=== PATIENT | female | born 1960 | race Caucasian/White ===

== ENCOUNTER 2018-10-03 13:42 | Outpatient (CLI) | payer BC ==
--- NOTE | 2018-10-03 14:57 | RAD ---
TWO VIEW CHEST: History: Pre-operative evaluation. FINDINGS: Lungs appear clear. Heart and mediastinum unremarkable. Osseous structures are unremarkable. IMPRESSION: Unremarkable chest. POS: [facility]
--- NOTE | 2018-10-03 16:29 | ULT ---
LEFT BREAST ULTRASOUND: Date: 10/03/18 HISTORY: Palpable nodule at the 3 o'clock position of the left breast. FINDINGS: Correlation is made with the mammogram from same date. Sonographic imaging of the region of palpable concern, at the 3 o'clock position of the left breast, demonstrates a 7.0 x 5.0 x 4.0 mm solid, nonshadowing nodule with irregular margins. This is not defi nitely seen on the mammogram and should be evaluated with an ultrasound guided biopsy. IMPRESSION: BI-RADS Category 4 - Suspicious abnormality. Ultrasound guided biopsy is recommended. Discussed in person with the patient at 1445 hours. POS: OFF
== END 2018-10-03 13:43 | disposition home or self-care (01) ==
LOC: BICMAMMO 13:42
DX: Z01.89 Encounter for other specified special examinations (principal); R92.8 Other abnormal and inconclusive findings on diagnostic imaging of breast; Z98.82 Breast implant status
CPT/HCPCS: 71046; 77066; G0279